=== PATIENT | female | born 1995 | race Hispanic/Latino ===

== ENCOUNTER 2019-09-05 18:07 | Emergency (ER) | payer SELFPAY ==
[2019-09-05] MEDS ORDERED: ACETAMINOPHEN 325 MG TAB PO ONE (18:57)
[2019-09-05 19:19] LABS: Basophils # (Auto) 0.1 K/mm3 (0.0-0.1); Basophils % (Auto) 1.2 % (0.0-1.8); Eosinophils % (Auto) 0.7 % (0.0-4.3); Hematocrit 32.1 % (30.3-42.9); Hemoglobin 10.5 gm/dl (10.1-14.3); Lymphocytes # (Auto) 1.9 K/mm3 (1.2-5.4); Lymphocytes % (Auto) 40.9 % (13.4-35.0); Mean Corpuscular HGB Conc 33 % (30-34); Mean Corpuscular Volume 82 fl (79-97); Monocytes # (Auto) 0.4 K/mm3 (0.0-0.8); Monocytes % (Auto) 9.7 % (0.0-7.3); Platelet Count 359 K/mm3 (140-440); Red Blood Count 3.93 M/mm3 (3.65-5.03); Red Cell Distribution Width 15.7 % (13.2-15.2)
--- NOTE | 2019-09-05 19:33 | XRay Report ---
ABDOMEN 2 VIEW(S) INDICATION / CLINICAL INFORMATION: abd pain, CP. COMPARISON: None available. FINDINGS: TUBES / LINES: None. BOWEL GAS PATTERN: The bowel gas pattern is nonobstructive. Colonic stool is moderate. ADDITIONAL FINDINGS: No significant additional findings. IMPRESSION: Moderate colonic stool. Signer Name: Charles Barnard MD Signed: 09/05/2019 7:28 PM Workstation Name: [id number]
[2019-09-05 19:43] LABS: Alanine Aminotransferase 14 units/L (7-56); Albumin 3.6 g/dL (3.9-5); BUN/Creatinine Ratio 18; Blood Urea Nitrogen 9 mg/dL (7-17); Calcium 9.3 mg/dL (8.4-10.2); Hemolysis Index 6
--- NOTE | 2019-09-05 20:22 | Cat Scan Report ---
CT head/brain wo con INDICATION / CLINICAL INFORMATION: 24 years Female; Headache. TECHNIQUE: Routine CT head without contrast. All CT scans at this location are performed using CT dos e reduction for ALARA by means of automated exposure control. COMPARISON: None. FINDINGS: BRAIN / INTRACRANIAL CONTENTS: The brain parenchyma demonstrate appropriate attenuation. The ventricu lar system is within normal limits in size and configuration. There is no clear CT evidence of acute intracranial hemorrhage or significant mass effect. ORBITS: No significant abnormality of visualized orbits. SINUSES / MASTOIDS: No significant abnormality the visualized paranasal sinuses or mastoid air cells. CRANIOCERVICAL JUNCTION: No significant abnormality. ADDITIONAL FINDINGS: None. IMPRESSION: 1. There is no CT evidence of acute intracranial process. Signer Name: Manny Hill MD Signed: 09/05/2019 8:18 PM Workstation Name: [id number]
[2019-09-05] MEDS ORDERED: KETOROLAC 30 MG/1 ML INJ IM ONE (21:03)
--- NOTE | 2019-09-05 21:07 | Emergency Department Report ---
HPI - General Chief Complaint: Chest Pain Time Seen by Provider: 09/05/19 18:38 - HPI HPI: 24-year-old female presents to the emergency department via EMS from [facility] with multiple complaints. The patient complains of a right- sided throbbing headache for the past few days. She denies any vision change, slurred speech or any neurological deficits. Patient says that she feels like she is constantly about to fall asleep but otherwise has been unable to fall asleep because of the discomfort. Secondly, the Patient complains of some midsternal to left-sided chest pain that has been going on for the past few hours. No shortness of breath, fever, back pain or diaphoresis. Lastly, the patient complains of some abdominal pain that seems to worsen when the patient eats food. She gets a burning sensation and some nausea. The patient just recently gave on August 14 appears to have depression. She is currently on a 1013. Patient last smoked cigarettes about 3 weeks ago. She denies any recent alcohol or illicit drug use. ED Past Medical Hx - Past Medical History Hx Psychiatric Treatment: ( depression) - Social History Smoking Status: Never Smoker Substance Use Type: None - Medications Home Medications: Home Medications Medication Instructions Recorded Confirmed Last Taken Type Famotidine [Pepcid] 20 mg PO BID #20 tablet 09/05/19 Unknown Rx ED Review of Systems ROS: Stated complaint: CHEST PAIN Other details as noted in HPI Comment: All other systems reviewed and negative Constitutional: denies: chills, fever Eyes: denies: eye pain, vision change ENT: denies: ear pain, throat pain Respiratory: denies: cough, shortness of breath Cardiovascular: chest pain. denies: edema Gastrointestinal: abdominal pain, nausea Genitourinary: denies: dysuria, discharge Musculoskeletal: denies: back pain, arthralgia Skin: denies: rash, change in color Neurological: headache. denies: weakness, numbness Physical Exam - Physical Exam Vital Signs: Vital Signs 09/05/19 09/05/19 09/05/19 18:27 18:41 19:31 Temperature 98 F Pulse Rate 70 Respiratory 20 14 16 Rate Blood Pressure 111/66 O2 Sat by Pulse 99 Oximetry Physical Exam: GENERAL: The patient is well-developed well-nourished. HEENT: Normocephalic. Atraumatic. Patient has moist mucous membranes. EYES: Extraocular motions are intact. Pupils equal and reactive to light bilaterally. NECK: Supple. Trachea is midline. CHEST/LUNGS: Clear to auscultation. There is no respiratory distress noted. HEART/CARDIOVASCULAR: Regular. There is no tachycardia. There is no murmur. ABDOMEN: Abdomen is soft, nontender. Patient has normal bowel sounds. There is no abdominal distention. SKIN:Skin is warm and dry. . NEURO: The patient is awake, alert, and oriented. The patient is cooperative. The patient has no focal neurologic deficits. Normal speech. Cranial nerves II through XII grossly intact. MUSCULOSKELETAL: There is no tenderness or deformity. There is no evidence of acute injury. ED Course Vital Signs 09/05/19 09/05/19 09/05/19 18:27 18:41 19:31 Temperature 98 F Pulse Rate 70 Respiratory 20 14 16 Rate Blood Pressure 111/66 O2 Sat by Pulse 99 Oximetry ED Medical Decision Making - Lab Data Result diagrams: 09/05/19 19:03 09/05/19 19:03 - EKG Data -: EKG Interpreted by Me EKG shows normal: sinus rhythm, axis, intervals, QRS complexes, ST-T waves Rate: normal - EKG Data When compared to previous EKG there are: previous EKG unavailable Interpretation: normal EKG - Radiology Data Radiology results: report reviewed, image reviewed interpreted by me: Chest x-ray does not show any pleural effusions, pneumonia, pneumothorax, focal consolidation, or any other acute process. Abdominal x-ray shows nonspecific nonobstructive bowel gas CT head/brain wo con INDICATION / CLINICAL INFORMATION: 24 years Female; Headache. TECHNIQUE: Routine CT head without contrast. All CT scans at this location are performed using CT dose reduction for ALARA by means of automated exposure control. COMPARISON: None. FINDINGS: BRAIN / INTRACRANIAL CONTENTS: The brain parenchyma demonstrate appropriate attenuation. The ventricular system is within normal limits in size and configuration. There is no clear CT evidence of acute intracranial hemorrhage or significant mass effect. ORBITS: No significant abnormality of visualized orbits. SINUSES / MASTOIDS: No significant abnormality the visualized paranasal sinuses or mastoid air cells. CRANIOCERVICAL JUNCTION: No significant abnormality. ADDITIONAL FINDINGS: None. IMPRESSION: 1. There is no CT evidence of acute intracranial process. Signer Name: Manny Hill MD - Medical Decision Making This patient presents from her psychiatric facility with multiple complaints that includes some midsternal to left-sided chest pain, intermittent throbbing headache and some abdominal pain that she describes more as acid reflux. On examination she does not have any focal, motor or sensory deficits and her cranial nerves are intact. Heart and lung sounds are normal auscultation. Abdomen is soft, nondistended and nontoxic in appearance. The patient is asking for food and drink pretty much from her initial presentation. A CT scan of the head did not show any bleed, shift, mass, ischemia, or any other acute process. Chest x-ray does not show any pneumonia, pleural effusions, focal consoli dation, or any other acute process. Abdominal x-ray shows nonspecific nonobstructive bowel gas. Patient's labs were unremarkable including CBC, metabolic panel, troponin, ammonia level. Vital signs stable throughout her ED course. EKG does not show any signs of ST elevation NH, ischemia or dysrh ythmia. For all of these reasons the patient appears safe for discharge back to her psychiatric facility at this time. She has been instructed to follow-up with a primary care physician, and has been given a referral for gastroenterology, as soon as she is able to do so and on with the psychiatric facility. In the meantime, the patient has been instructed to return to the ER with any worsening of her symptoms or any acute distress. - Differential Diagnosis migraine, tension headache, costochondritis, GERD, pneumonia Critical Care Time: No Critical care attestation.: If time is entered above; I have spent that time in minutes in the direct care of this critically ill patient, excluding procedure time. ED Disposition Clinical Impression: Atypical chest pain, Intermittent headache GERD (gastroesophageal reflux disease) Qualifiers: Esophagitis presence: esophagitis presence not specified Qualified Code(s): K21.9 - Gastro-esophageal reflux disease without esophagitis Disposition: DC-01 TO HOME OR SELFCARE Is pt being admited?: No Condition: Stable Instructions: Chest Pain (ED), Gastroesophageal Reflux Disease (ED), Acute Headache (ED), Abdominal Pain (ED) Additional Instructions: Please follow up with a primary care physician as soon as you are done at the psychiatric facility. I will give you some referrals for local [facility] to follow up regarding your acid reflux and abdominal pains. Return to the emergency Department with any worsening of your symptoms or any acute distress. Prescriptions: Famotidine [Pepcid] 20 mg PO BID #20 tablet Referrals: [facility] [Provider Group] - [facility] PCP, Your [Other] - [place] Time of Disposition: 22:16
--- NOTE | 2019-09-05 21:47 | XRay Report ---
CHEST 2 VIEWS INDICATION / CLINICAL INFORMATION: CP. COMPARISON: None available. FINDINGS: SUPPORT DEVICES: None. HEART / MEDIASTINUM: No significant abnormality. LUNGS / PLEURA: The lungs are mildly hyperinflated but otherwise clear. No pneumothorax. ADDITIONAL FINDINGS: No significant additional findings. IMPRESSION: 1. Mild hyperinflation of the lungs. No acute superimposed disease. Signer Name: Melvina Rosado MD Signed: 09/05/2019 9:43 PM Workstation Name: [id number]
[2019-09-05 23:57] VITALS: BP 100/68
== END 2019-09-05 23:56 ==
LOC: ED 18:07
DX: K21.9 Gastro-esophageal reflux disease without esophagitis (principal); R51 Headache
CPT/HCPCS: 36415; 70450; 71046; 74019; 80053; 82140; 84484; 84703; 85025; 93005; 93010; 96372; 99285; J1885

== ENCOUNTER 2019-09-29 11:24 | Emergency (ER) | payer MEDICAID ==
--- NOTE | 2019-09-29 13:07 | Emergency Department Report ---
ED General Adult HPI - General Chief complaint: Weakness Stated complaint: WEAKNESS Time Seen by Provider: 09/29/19 11:50 Source: patient, EMS, RN notes reviewed, old records reviewed Mode of arrival: Stretcher Limitations: No Limitations - History of Present Illness Initial comments: During the entire history and physical examination, I am transport corps officer and escorted by nurse MAIKOL KAUFFMAN Patient is a 24-year-old female. She is not known to myself previously. She is currently on a 1013, has a history of possible von Willebrand's disease, recommend to follow-up on an outpatient basis, iron deficiency anemia, depression, reflux, currently discharge on proton pump inhibitor, Protonix. The patient is sent to the emergency room by a local psychiatric facility for general medical evaluation. The patient complains of headache which is frontal and bitemporal for 1 month. The headache is not sudden or thunderclap in nature. The headache is not maximal in intensity. The headache does not radiate anywhere. It occasionally worsens when she opens her eyes, and occasionally worsens when she closes her eyes. There is no throat pain, and there is no neck pain or neck stiffness. She also endorses left-sided nontraumatic chest wall spasming, present x1 day. She also endorses nausea and vomiting yesterday, nonbloody and nonbilious. She denies irritative and obstructive urinary symptoms. She also endorses a muscular cramps, now resolved. She also endorses nontraumatic bilateral lower extremity swelling. Of note, the patient was seen in this department 1 month ago for similar symptoms, had appropriate physical exam, laboratory studies, unremarkable, x-ray of the chest which was unremarkable, CT scan of the brain which was unremarkable, and an unremarkable EKG. The patient also endorses that she was seen at [facility] a few days ago for her headache, that she had an MRI, which was "negative." At the moment, she is not homicidal or suicidal. She does not have access to guns or to firearms. She endorses hallucinations and that she is seeing "shadows." However, she denies additional audio/visual hallucinations. -: Gradual, days(s), week(s) Location: head, left, right, lower extremity Quality: other Consistency: other Improves with: other Worsens with: other Associated Symptoms: other - Related Data Previous Rx's Medication Instructions Recorded Last Taken Type Famotidine [Pepcid] 20 mg PO BID #20 tablet 09/05/19 Unknown Rx Allergies Allergy/AdvReac Type Severity Reaction Status Date / Time No Known Allergies Allergy Unverified 09/05/19 18:27 ED Review of Systems ROS: Stated complaint: WEAKNESS Other details as noted in HPI Constitutional: malaise. denies: fever Eyes: denies: eye discharge ENT: denies: congestion Respiratory: denies: shortness of breath Cardiovascular: edema Gastrointestinal: nausea, vomiting Genitourinary: denies: dysuria Musculoskeletal: myalgia Skin: denies: lesions Neurological: headache, weakness Psychiatric: depression ED Past Medical Hx - Past Medical History Hx GERD: Yes Hx Psychiatric Treatment: ( depression) Additional medical history: anemia - Social History Smoking Status: Never Smoker - Medications Home Medications: Home Medications Medication Instructions Recorded Confirmed Last Taken Type Famotidine [Pepcid] 20 mg PO BID #20 tablet 09/05/19 Unknown Rx ED Physical Exam - General Limitations: No Limitations General appearance: alert, in no apparent distress - Head Head exam: Present: atraumatic, normocephalic - Eye Eye exam: Present: normal appearance, EOMI. Absent: nystagmus - ENT ENT exam: Present: normal exam, normal orophraynx, mucous membranes moist, normal external ear exam - Neck Neck exam: Present: normal inspection, full ROM. Absent: tenderness, meningismus - Respiratory Respiratory exam: Present: normal lung sounds bilaterally, chest wall tenderness, other (Chaperoned by nurse MAIKOL Kidd). Absent: respiratory distress - Cardiovascular Cardiovascular Exam: Present: regular rate, normal rhythm, normal heart sounds. Absent: bradycardia, tachycardia, irregular rhythm, systolic murmur, diastolic murmur, rubs, gallop - GI/Abdominal GI/Abdominal exam: Present: soft. Absent: distended, tenderness, guarding, rebound, rigid, pulsatile mass - Extremities Exam Extremities exam: Present: normal inspection, full ROM, pedal edema, other (2+ pulses noted in the bilateral upper and lower extremities. There is no palpable cord. negative Homans sign. Muscular compartments are soft. The pelvis is stable.). Absent: calf tenderness - Back Exam Back exam: Present: normal inspection, full ROM. Absent: tenderness, CVA tenderness (R), CVA tenderness (L), paraspinal tenderness, vertebral tenderness - Neurological Exam Neurological exam: Present: alert, oriented X3, other (There is no facial droop. The tongue is midline. Extraocular movements are intact bilaterally. There is 5 out of 5 strength in bilateral upper and lower extremities. Sensation is intact to light touch bilateral upper and lower extremities. There is no past- pointing. There is no pronator drift. There is normal [id number]. There is a normal gait.). Absent: motor sensory deficit - Psychiatric Psychiatric exam: Present: flat affect - Skin Skin exam: Present: warm, dry, intact, normal color. Absent: rash ED Course Vital Signs 09/29/19 09/29/19 09/29/19 11:47 11:52 12:00 Temperature 97.8 F Pulse Rate 80 78 Respiratory 18 12 Rate Blood Pressure 107/60 107/60 O2 Sat by Pulse 99 99 99 Oximetry 09/29/19 09/29/19 13:14 13:15 Temperature Pulse Rate 94 H 96 H Respiratory 15 18 Rate Blood Pressure 106/54 106/54 O2 Sat by Pulse 99 99 Oximetry - Reevaluation(s) Reevaluation #1: 09/29/19 13:31 Differential diagnosis, including but not limited to: Migraine headache, tension headache, cluster headache, dependent edema, DVT Assessment and plan: 24-year-old female with a number of complaints. Complaints include headache, myalgias, malaise and fatigue. She is afebrile with reassuring vital signs. She is not hypertensive and does not have crackles or rales. She has no shortness of breath. Her x-ray today is unremarkable. EKG is pending. GCS of 15, NIH score of 0, recently had negative CT scan of the brain, no advanced imaging is indicated at this time for intracranial evaluation. She is eating a peanut butter sandwich as we speak. EKG pending, urinalysis pending, screening laboratory studies pending, DVT study pending. Do not anticipate that the patient has an emergency medical condition at this time. Reevaluation #2: 09/29/19 14:37 Laboratory studies do not show transaminitis, proteinuria, or hypertension. Elevated d-dimer is reviewed and appreciated, DVT study is negative. Patient resting comfortably, and in no acute distress. EKG unchanged from prior. She ate peanut butter without difficulty. She does not appear to have an emergent medical condition at this time. ED Medical Decision Making - Lab Data Result diagrams: 09/29/19 12:50 09/29/19 12:50 Vital Signs 09/29/19 09/29/19 09/29/19 11:47 11:52 12:00 Temperature 97.8 F Pulse Rate 80 78 Respiratory 18 12 Rate Blood Pressure 107/60 107/60 O2 Sat by Pulse 99 99 99 Oximetry 09/29/19 09/29/19 13:14 13:15 Temperature Pulse Rate 94 H 96 H Respiratory 15 18 Rate Blood Pressure 106/54 106/54 O2 Sat by Pulse 99 99 Oximetry Lab Results 09/29/19 Range/Units 12:50 WBC 7.9 (4.5-11.0) K/mm3 RBC 3.68 (3.65-5.03) M/mm3 Hgb 10.1 (10.1-14.3) gm/dl Hct 31.2 (30.3-42.9) % MCV 85 (79-97) fl MCH 27 L (28-32) pg MCHC 32 (30-34) % RDW 20.7 H (13.2-15.2) % Plt Count 289 (140-440) K/mm3 - EKG Data -: EKG Interpreted by Me EKG shows normal: sinus rhythm, axis, intervals, QRS complexes, ST-T waves Rate: normal - EKG Data When compared to previous EKG there are: no significant change Interpretation: normal EKG Critical care attestation.: If time is entered above; I have spent that time in minutes in the direct care of this critically ill patient, excluding procedure time. ED Disposition Clinical Impression: History of headache, Chest wall pain, Dependent edema, Medical clearance for psychiatric admission Disposition: DC/TX-65 PSY HOSP/PSY UNIT Is pt being admited?: No Does the pt Need Aspirin: No Condition: Stable Additional Instructions: Patient does not appear to have an emergent medical condition at this time. Participate in physical activities as tolerated. Patient may take pccv-hex-elzaqod Tylenol, 500 mg by mouth, every 4-6 hours as needed for pain. Recommend following up with an outpatient medical doctor within the next 5 to 7 days. Recommend following up with her outpatient public relations counselor as scheduled upon previous discharge. Recommend avoidance of sedating medications. Return to the emergency room right away with new, worsened or different symptoms not present on the initial emergency room evaluation
[2019-09-29 13:25] LABS: Hematocrit 31.2 % (30.3-42.9); Hemoglobin 10.1 gm/dl (10.1-14.3); Mean Corpuscular HGB Conc 32 % (30-34); Mean Corpuscular Volume 85 fl (79-97); Platelet Count 289 K/mm3 (140-440); Red Blood Count 3.68 M/mm3 (3.65-5.03); Red Cell Distribution Width 20.7 % (13.2-15.2)
--- NOTE | 2019-09-29 13:26 | XRay Report ---
CHEST 1 VIEW INDICATION: chest wall pain. COMPARISON: 09/05/2019 FINDINGS: Support devices: None. Heart: Normal. Lungs/Pleura: No acute pulmonary or pleural findings. IMPRESSION: 1. No acute findings. Signer Name: Jeff Flores MD Signed: 09/29/2019 1:22 PM Workstation Name: [id number]
[2019-09-29] MEDS ORDERED: FAMOTIDINE 20 MG TAB PO ONE (13:33)
[2019-09-29 13:35] LABS: INR 0.89 (0.87-1.13)
[2019-09-29 13:36] LABS: Partial Thromboplastin Time 23.8 Sec. (24.2-36.6)
[2019-09-29 13:37] LABS: Bacteria,Urine 1+ /HPF (Negative); Bilirubin,Urine NEG (Negative); Blood,Urine NEG (Negative); Color,Urine Straw (Yellow); Protein,Urine <15 mg/dL mg/dL (Negative); Urobilinogen,Urine < 2.0 mg/dL (<2.0)
[2019-09-29 13:42] LABS: Alanine Aminotransferase 41 units/L (7-56); Albumin 3.7 g/dL (3.9-5); BUN/Creatinine Ratio 60; Blood Urea Nitrogen 24 mg/dL (7-17); Calcium 9.1 mg/dL (8.4-10.2); Hemolysis Index 20
--- NOTE | 2019-09-29 14:25 | Vascular Lab Report ---
DUPLEX DOPPLER LOWER EXTREMITY VEINS, BILATERAL INDICATION: Bilateral lower extremity swelling for 2 days. TECHNIQUE: Duplex doppler imaging was performed through the veins of both lower extremities using ve nous compression and other maneuvers. COMPARISON: No relevant prior imaging study available. FINDINGS: Right Common femoral vein: Negative. Right Superficial femoral vein: Negative. Right Popliteal vein: Negative. Right Calf veins: Negative. Left Common femoral vein: Negative. Left Superficial femoral vein: Negative. Left Popliteal vein: Negative. Left Calf veins: Negative. Additional findings: None.. IMPRESSION: No sonographic evidence for DVT in either lower extremity. Signer Name: Gerhard Payne Jr, MD Signed: 09/29/2019 2:21 PM Workstation Name: [id number]
[2019-09-29] MEDS ORDERED: ACETAMINOPHEN 325 MG TAB PO ONE (15:42)
[2019-09-29] MEDS ORDERED: ACETAMINOPHEN 325 MG TAB ONE (15:48)
[2019-09-29 17:05] VITALS: BP 106/56
== END 2019-09-29 17:08 ==
LOC: ED 11:24
DX: R51 Headache (principal); R07.89 Other chest pain; R60.9 Edema, unspecified; K21.9 Gastro-esophageal reflux disease without esophagitis; Z86.2 Personal history of diseases of the blood and blood-forming organs and certain disorders involving the immune mechanism; Z79.899 Other long term (current) drug therapy
CPT/HCPCS: 36415; 71045; 80053; 81001; 82550; 83735; 84443; 85027; 85379; 85610; 85730; 93005; 93010; 93970

== ENCOUNTER 2019-10-02 15:43 | Emergency (ER) | payer MEDICAID ==
--- NOTE | 2019-10-02 16:14 | Emergency Department Report ---
ED General Adult HPI - General Stated complaint: BACK PAIN Time Seen by Provider: 10/02/19 16:06 - History of Present Illness Initial comments: Patient is 24-year-old female brought to the emergency room from our local psychiatric facility [place] for evaluation of midthoracic back pain started this morning. Patient denied any recent injury, fever or chills. Patient is complaining of chronic headache for which she was evaluated here with a CT scan which was negative. Patient denied any urinary symptoms. - Related Data Previous Rx's Medication Instructions Recorded Last Taken Type Famotidine [Pepcid] 20 mg PO BID #20 tablet 09/05/19 Unknown Rx Allergies Allergy/AdvReac Type Severity Reaction Status Date / Time No Known Allergies Allergy Unverified 09/05/19 18:27 ED Review of Systems ROS: Stated complaint: BACK PAIN Other details as noted in HPI Comment: All other systems reviewed and negative Constitutional: denies: chills, fever Respiratory: denies: cough, shortness of breath, SOB with exertion Cardiovascular: denies: chest pain, palpitations Gastrointestinal: denies: abdominal pain, nausea, vomiting Genitourinary: denies: hematuria Musculoskeletal: back pain. denies: joint swelling, arthralgia, myalgia Neurological: headache. denies: weakness, numbness, paresthesias, confusion, abnormal gait Psychiatric: depression ED Past Medical Hx - Past Medical History Hx GERD: Yes Hx Psychiatric Treatment: ( depression) Additional medical history: anemia - Social History Smoking Status: Never Smoker - Medications Home Medications: Home Medications Medication Instructions Recorded Confirmed Last Taken Type Famotidine [Pepcid] 20 mg PO BID #20 tablet 09/05/19 Unknown Rx ED Physical Exam - General General appearance: alert, in no apparent distress - Head Head exam: Present: atraumatic, normocephalic, normal inspection - Eye Eye exam: Present: normal appearance - ENT ENT exam: Present: normal exam, normal orophraynx, mucous membranes moist - Neck Neck exam: Present: normal inspection, full ROM. Absent: tenderness, meningismus - Respiratory Respiratory exam: Present: normal lung sounds bilaterally - Cardiovascular Cardiovascular Exam: Present: regular rate, normal rhythm, normal heart sounds - GI/Abdominal GI/Abdominal exam: Present: soft, normal bowel sounds. Absent: distended, tenderness, guarding, rebound, rigid, organomegaly, mass, bruit, pulsatile mass, hernia - Extremities Exam Extremities exam: Present: normal inspection, full ROM, normal capillary refill. Absent: tenderness, pedal edema, calf tenderness - Back Exam Back exam: Present: normal inspection, full ROM. Absent: CVA tenderness (R), CVA tenderness (L) - Neurological Exam Neurological exam: Present: alert, oriented X3, CN II-XII intact, normal gait, reflexes normal - Psychiatric Psychiatric exam: Present: normal mood - Skin Skin exam: Present: warm, intact, normal color ED Course Vital Signs 10/02/19 17:12 Temperature 98.1 F Pulse Rate 92 H Respiratory 15 Rate Blood Pressure 88/47 [Left] O2 Sat by Pulse 98 Oximetry ED Medical Decision Making - Lab Data Result diagrams: 10/02/19 16:24 10/02/19 16:24 - Radiology Data Radiology results: report reviewed - Medical Decision Making Patient is 24-year-old female brought to the emergency room from our local psychiatric facility [place] for evaluation of midthoracic back pain started this morning. Patient denied any recent injury, fever or chills. Patient is complaining of chronic headache for which she was evaluated here with a CT scan which was negative. Patient denied any urinary symptoms. Patient remained stable in the ER. Labs reviewed and is unremarkable. X-ray of the thoracic spine is negative for acute finding. Patient given prescription for Naprosyn and Flexeril and advised to follow-up with her primary care physician in the next 2 to 3 days and to return to the ER if she develop any new symptoms. Critical care attestation.: If time is entered above; I have spent that time in minutes in the direct care of this critically ill patient, excluding procedure time. ED Disposition Clinical Impression: Sinusitis, Back pain Disposition: -01 TO HOME OR SELFCARE Is pt being admited?: No Condition: Stable Instructions: Sinusitis (ED), Back Pain (ED) Referrals: PRIMARY CARE, [Referring] - 3-5 Days
[2019-10-02 16:59] LABS: Hematocrit 30.7 % (30.3-42.9); Mean Corpuscular HGB Conc 33 % (30-34); Mean Corpuscular Volume 85 fl (79-97); Platelet Count 282 K/mm3 (140-440); Red Blood Count 3.61 M/mm3 (3.65-5.03)
--- NOTE | 2019-10-02 17:02 | XRay Report ---
CLINICAL DATA: BACK INJURY TECHNICAL DATA: AP and lateral views were obtained of the thoracic spine. FINDINGS: The thoracic vertebrae have normal anatomic height and alignment. The disc spaces are normal. No sig nificant degenerative changes are present. No evidence of a fracture. There is no paraspinal edema or hemorrhage. IMPRESSION: Normal thoracic spine. Signer Name: Jarek Harmon MD Signed: 10/02/2019 4:58 PM Workstation Name: [id number]
[2019-10-02 17:05] LABS: Red Cell Distribution Width 22.1 % (13.2-15.2)
[2019-10-02 17:14] LABS: Eosinophils % (Auto) 0.4 % (0.0-4.3); Monocytes # (Auto) 0.5 K/mm3 (0.0-0.8); Monocytes % (Auto) 10.7 % (0.0-7.3)
[2019-10-02 17:22] LABS: Alanine Aminotransferase 61 units/L (7-56); BUN/Creatinine Ratio 50; Blood Urea Nitrogen 20 mg/dL (7-17); Calcium 8.9 mg/dL (8.4-10.2); Hemolysis Index 5
[2019-10-02 17:24] LABS: Bilirubin,Urine NEG (Negative); Blood,Urine NEG (Negative); Color,Urine Yellow (Yellow); Mucus,Urine 2+ /HPF; Protein,Urine <15 mg/dL mg/dL (Negative); Urobilinogen,Urine < 2.0 mg/dL (<2.0)
[2019-10-02] MEDS ORDERED: SODIUM CHLORIDE 0.9% 1000 ML 1,000 ML IV ONE (17:52)
[2019-10-02 17:57] LABS: Anisocytosis 1+; Band Neutrophils # (Manual) 0.1 K/mm3; Basophils % (Manual) 0 % (0.0-1.8); Poikilocytosis 2+; Total Cells Counted 100
[2019-10-02 17:58] LABS: Ovalocytes 1+; Platelet Estimate Consistent w Auto; Tear Drop Cells Few
[2019-10-02 20:16] VITALS: BP 110/63
== END 2019-10-02 20:27 | disposition home or self-care (01) ==
LOC: ED 15:43
DX: J32.9 Chronic sinusitis, unspecified (principal); M54.6 Pain in thoracic spine; K21.9 Gastro-esophageal reflux disease without esophagitis; F31.9 Bipolar disorder, unspecified; D64.9 Anemia, unspecified; Z79.899 Other long term (current) drug therapy
CPT/HCPCS: 36415; 72070; 80053; 81001; 85007; 85025; 99285; J7030